=== PATIENT | male | born 1960 | race American Indian/Alaskan Native ===

== ENCOUNTER 2017-11-21 07:56 | Inpatient (IN) | payer BC ==
--- NOTE | 2017-11-21 08:22 | Emergency Department Report ---
ED Shortness of Breath HPI - General Chief Complaint: Dyspnea/Respdistress Stated Complaint: DIFFICULTY BREATHING/HYPERTENSION Time Seen by Provider: 11/21/17 08:22 Source: patient Mode of arrival: Ambulatory Limitations: No Limitations - History of Present Illness MD Complaint: shortness of breath -: Sudden Severity: moderate Pain Scale: 6 Quality: dull Consistency: constant Improves With: oxygen Worsens With: lying flat Known History Of: COPD, asthma Associated Symptoms: denies other symptoms Treatments Prior to Arrival: none - Related Data Home Oxygen Therapy: No Allergies Allergy/AdvReac Type Severity Reaction Status Date / Time No Known Allergies Allergy Unverified 11/21/17 07:58 ED Review of Systems ROS: Stated complaint: DIFFICULTY BREATHING/HYPERTENSION Other details as noted in HPI Comment: All other systems reviewed and negative Constitutional: denies: chills, fever Eyes: denies: eye pain, eye discharge ENT: denies: ear pain Respiratory: orthopnea, shortness of breath Cardiovascular: dyspnea on exertion. denies: chest pain, palpitations Endocrine: no symptoms reported Gastrointestinal: denies: abdominal pain, nausea, vomiting, diarrhea Genitourinary: denies: urgency, dysuria, frequency Musculoskeletal: denies: back pain, joint swelling Skin: denies: rash, lesions Neurological: denies: headache, weakness Psychiatric: denies: anxiety, depression Hematological/Lymphatic: denies: easy bleeding, easy bruising ED Past Medical Hx - Past Medical History Hx Hypertension: Yes Hx Asthma: Yes Hx HIV: Yes Additional medical history: Ca - Surgical History Hx Appendectomy: Yes Additional Surgical History: prostatectomy - Social History Smoking Status: Current Some Day Smoker Substance Use Type: None ED Physical Exam - General Limitations: No Limitations General appearance: alert, in distress - Head Head exam: Present: atraumatic, normocephalic, normal inspection - Eye Eye exam: Present: normal appearance, PERRL, EOMI Pupils: Present: normal accommodation - ENT ENT exam: Present: normal exam, normal orophraynx, mucous membranes moist - Neck Neck exam: Present: normal inspection, full ROM. Absent: tenderness - Respiratory Respiratory exam: Present: respiratory distress, wheezes, rhonchi - Cardiovascular Cardiovascular Exam: Present: regular rate, normal rhythm, normal heart sounds - GI/Abdominal GI/Abdominal exam: Present: soft, normal bowel sounds. Absent: distended, tenderness, guarding, rebound - Extremities Exam Extremities exam: Present: normal inspection, tenderness, normal capillary refill - Back Exam Back exam: Present: normal inspection, full ROM. Absent: tenderness - Neurological Exam Neurological exam: Present: alert, oriented X3, CN II-XII intact - Psychiatric Psychiatric exam: Present: normal affect, normal mood - Skin Skin exam: Present: warm, dry, intact, normal color ED Course Vital Signs 11/21/17 11/21/17 11/21/17 07:58 08:15 08:31 Temperature 98.8 F Pulse Rate 101 H Pulse Rate [ Posterior Bilateral Throughout] Respiratory 18 Rate Respiratory Rate [Posterior Bilateral Throughout] Blood Pressure 188/100 149/95 O2 Sat by Pulse 91 91 96 Oximetry 11/21/17 11/21/17 11/21/17 08:45 09:00 09:15 Temperature Pulse Rate Pulse Rate [ Posterior Bilateral Throughout] Respiratory Rate Respiratory Rate [Posterior Bilateral Throughout] Blood Pressure 139/91 149/95 149/95 O2 Sat by Pulse 99 99 100 Oximetry 11/21/17 11/21/17 11/21/17 09:30 09:40 09:45 Temperature Pulse Rate Pulse Rate [ 80 Posterior Bilateral Throughout] Respiratory Rate Respiratory 18 Rate [Posterior Bilateral Throughout] Blood Pressure 157/94 157/94 O2 Sat by Pulse 98 91 Oximetry 11/21/17 11/21/17 11/21/17 10:01 10:05 10:15 Temperature Pulse Rate Pulse Rate [ 82 Posterior Bilateral Throughout] Respiratory Rate Respiratory 18 Rate [Posterior Bilateral Throughout] Blood Pressure 157/94 157/94 O2 Sat by Pulse 95 93 Oximetry 11/21/17 11/21/17 10:31 10:45 Temperature Pulse Rate Pulse Rate [ Posterior Bilateral Throughout] Respiratory Rate Respiratory Rate [Posterior Bilateral Throughout] Blood Pressure 157/94 157/94 O2 Sat by Pulse 91 89 Oximetry - Reevaluation(s) Reevaluation #1: 11/21/17 11:29 This was discussed with the hospitalist on-call Dr. Oakley who will admit the patient to the hospital for further evaluation and management. ED Medical Decision Making - Lab Data Result diagrams: 11/21/17 09:05 11/21/17 09:05 - EKG Data -: EKG Interpreted by Me EKG shows normal: sinus rhythm Rate: normal (72) - EKG Data When compared to previous EKG there are: previous EKG unavailable Interpretation: normal EKG - Radiology Data Radiology results: report reviewed, image reviewed - Medical Decision Making Shortness of breath. Critical care attestation.: If time is entered above; I have spent that time in minutes in the direct care of this critically ill patient, excluding procedure time. ED Disposition Clinical Impression: Shortness of breath, Hypoxia, COPD exacerbation Disposition: OP ADMIT IP TO THIS HOSP Is pt being admited?: Yes Does the pt Need Aspirin: No Condition: Stable Instructions: Chronic Obstructive Pulmonary Disease (ED) Referrals: PRIMARY CARE, [Primary Care Provider] - 3-5 Days Time of Disposition: 11:19
[2017-11-21] MEDS ORDERED: PROVENTIL IH ONE (08:27)
[2017-11-21] MEDS ORDERED: DELTASONE PO ONE (08:27)
[2017-11-21] MEDS ORDERED: NACL 0.9% 1000 ML 1,000 ML IV ONE (08:27)
[2017-11-21] MEDS ORDERED: ATROVENT IH ONE (08:27)
--- NOTE | 2017-11-21 08:50 | XRay Report ---
FINAL REPORT EXAM: XR CHEST 1V AP HISTORY: Dyspnea TECHNIQUE: AP portable view(s) of the chest obtained. PRIORS: None. FINDINGS: No mediastinal shift. Cardiac silhouette is not enlarged. No pneumothorax, effusion, or focal pulmonary opacity identified. No acute skeletal findings. IMPRESSION: No acute pulmonary finding identified.
[2017-11-21 09:12] LABS: Basophils % (Auto) 0.6 % (0.0-1.8); Eosinophils # (Auto) 0.1 K/mm3 (0.0-0.4); Eosinophils % (Auto) 2.5 % (0.0-4.3); Hematocrit 47.5 % (35.5-45.6); Hemoglobin 16.4 gm/dl (11.8-15.2); Lymphocytes # (Auto) 0.9 K/mm3 (1.2-5.4); Mean Corpuscular HGB Conc 35 % (32-34); Mean Corpuscular Hemoglobin 31 pg (28-32); Mean Corpuscular Volume 90 fl (84-94); Monocytes # (Auto) 0.5 K/mm3 (0.0-0.8); Monocytes % (Auto) 13.8 % (0.0-7.3); Platelet Count 164 K/mm3 (140-440); Red Blood Count 5.27 M/mm3 (3.65-5.03); Red Cell Distribution Width 14.3 % (13.2-15.2)
[2017-11-21 09:24] LABS: INR 0.82 (0.87-1.13); Partial Thromboplastin Time 25.4 Sec. (24.2-36.6)
[2017-11-21 09:28] LABS: Creatine Kinase MB 3.3 ng/mL (0.0-4.0)
[2017-11-21 09:30] LABS: Alanine Aminotransferase 26 units/L (7-56); Albumin 4.6 g/dL (3.9-5); BUN/Creatinine Ratio 13; Blood Urea Nitrogen 13 mg/dL (9-20); Calcium 9.4 mg/dL (8.4-10.2); Hemolysis Index 43
--- NOTE | 2017-11-21 12:15 | History and Physical Report ---
History of Present Illness Chief complaint: Im coughing and its hard to breathe History of present illness: 57 YO Male with HTN, CaP, HIV, Asthma, Nicotine Dependence presents to ED for evaluation. Pt states that he has experienced increased productive cough, and shortness of breath over the past 3 days with worsening symptoms over the past 1 day. Pt transported to [facility] for further care and evaluation. Pt seen and evaluated in ED and found to have COPD Exacerbation, with Acute Hypoxemic Respiratory Failure. Pt denies fever, chills, CP, Palpitations, NVD, Skin rash, BRBPR, Unintentional weight loss, Night sweats, bone pain, or recent ill contacts. Past History Past Medical History: HIV/AIDS, hypertension Past Surgical History: appendectomy, Other (prostatectomy) Social history: single, smoking Family history: hypertension Medications and Allergies Allergies Allergy/AdvReac Type Severity Reaction Status Date / Time No Known Allergies Allergy Unverified 11/21/17 07:58 Home Medications Medication Instructions Recorded Confirmed Last Taken Type Efavirenz/Emtricita/Tenofo(Nf) 1 each PO DAILY 11/21/17 11/21/17 Unknown History [Atripla (Nf)] Olmesartan/Amlodipin/Hcthiazid 1 each PO DAILY 11/21/17 11/21/17 Unknown History [Tribenzor 40-5-12.5 mg Tablet] Review of Systems Constitutional: no weight loss, no weight gain, no fever, no chills Ears, nose, mouth and throat: no ear pain, no ear discharge, no tinnitis, no decreased hearing, no nose pain, no nasal congestion Cardiovascular: no chest pain, no orthopnea, no palpitations, no rapid/ irregular heart beat, no edema Respiratory: cough, cough with sputum, excessive sputum, shortness of breath, no congestion, no wheezing Gastrointestinal: no nausea, no vomiting, no diarrhea, no constipation Genitourinary Male: no hematuria, no flank pain, no discharge, no urinary frequency, no urinary hesitancy Rectal: no pain, no incontinence, no bleeding Musculoskeletal: no neck stiffness, no neck pain, no shooting arm pain, no arm numbness/tingling, no low back pain, no shooting leg pain Integumentary: no rash, no pruritis, no redness, no sores, no wounds Neurological: no head injury, no transient paralysis, no paralysis, no weakness , no parathesias, no numbness Psychiatric: no anxiety, no memory loss, no change in sleep habits, no sleep disturbances, no insomnia, no hypersomnia Endocrine: no cold intolerance, no heat intolerance, no polyphagia, no excessive thirst, no polydipsia, no polyuria, no nocturia Hematologic/Lymphatic: no easy bruising, no easy bleeding, no lymphadenopathy, no lymphedema Allergic/Immunologic: no urticaria, no allergic rhinitis, no wheezing, no persistent infections, no anaphylaxis Exam - Constitutional Vitals: Temp Pulse Resp BP Pulse Ox 98.8 F 82 18 157/94 89 11/21/17 07:58 11/21/17 10:05 11/21/17 10:05 11/21/17 10:45 11/21/17 10:45 General appearance: Present: mild distress - EENT Eyes: Present: PERRL ENT: hearing intact, clear oral mucosa - Neck Neck: Present: supple, normal ROM - Respiratory Respiratory effort: labored Respiratory: bilateral: diminished, rhonchi - Cardiovascular Heart Sounds: Present: S1 & S2. Absent: rub, click - Extremities Extremities: pulses symmetrical, No edema Peripheral Pulses: within normal limits - Abdominal General gastrointestinal: Present: soft, non-tender, non-distended, normal bowel sounds Male genitourinary: Present: normal - Integumentary Integumentary: Present: clear, warm, dry - Musculoskeletal Musculoskeletal: gait normal, strength equal bilaterally - Psychiatric Psychiatric: appropriate mood/affect, intact judgment & insight - Neurologic Neurologic: CNII-XII intact, moves all extremities Results - Labs CBC & Chem 7: 11/21/17 09:05 11/21/17 09:05 Labs: Abnormal lab results 11/21/17 11/21/17 11/21/17 Range/Units 09:05 09:05 09:05 WBC 3.9 L (4.5-11.0) K/mm3 RBC 5.27 H (3.65-5.03) M/mm3 Hgb 16.4 H (11.8-15.2) gm/dl Hct 47.5 H (35.5-45.6) % MCHC 35 H (32-34) % [place] % (Auto) 13.8 H (0.0-7.3) % Lymph # 0.9 L (1.2-5.4) K/mm3 PT 11.7 L (12.2-14.9) Sec. INR 0.82 L (0.87-1.13) POC ABG pO2 (80-105) Glucose 108 H (75-100) mg/dL Total Creatine Kinase (55-170) units/L 11/21/17 11/21/17 11/21/17 Range/Units 09:05 09:45 11:31 WBC (4.5-11.0) K/mm3 RBC (3.65-5.03) M/mm3 Hgb (11.8-15.2) gm/dl Hct (35.5-45.6) % MCHC (32-34) % [place] % (Auto) (0.0-7.3) % Lymph # (1.2-5.4) K/mm3 PT (12.2-14.9) Sec. INR (0.87-1.13) POC ABG pO2 108 H 54 L (80-105) Glucose (75-100) mg/dL Total Creatine Kinase 252 H (55-170) units/L Assessment and Plan - Patient Problems (1) Respiratory failure Current Visit: Yes Status: Acute Qualifiers: Chronicity: acute Respiratory failure complication: hypoxia Qualified Code(s): J96.01 - Acute respiratory failure with hypoxia Plan to address problem: supplemental oxygen, nebulizer therapy, CTA chest, NIPPV as clinically indicated , ABG, pulse oximetry (2) Nicotine dependence with withdrawal Current Visit: Yes Status: Acute Qualifiers: Nicotine product type: cigarettes Qualified Code(s): F17.213 - Nicotine dependence, cigarettes, with withdrawal Plan to address problem: smoking cessation counseling, supportive care. (3) HIV (human immunodeficiency virus infection) Current Visit: Yes Status: Acute Plan to address problem: continue antiretroviral therapy, outpatient ID F/U (4) COPD exacerbation Current Visit: Yes Status: Acute Plan to address problem: Supplemental oxygen, nebulizer therapy, IV antibiotic therapy, chest x ray, IV steroid therapy (5) DVT prophylaxis Current Visit: Yes Status: Acute Plan to address problem: SCD to BLE while in bed.
[2017-11-21] MEDS ORDERED: PROVENTIL IH PRN (12:17)
[2017-11-21] MEDS ORDERED: ZOFRAN IV PRN (12:17)
[2017-11-21] MEDS ORDERED: SODIUM CHLORIDE FLUSH SYRINGE 10 ML IV PRN (12:17)
[2017-11-21] MEDS ORDERED: TYLENOL PO PRN (12:17)
[2017-11-21] MEDS ORDERED: ATIVAN IV ONE (12:20)
--- NOTE | 2017-11-21 16:22 | Cat Scan Report ---
FINAL REPORT EXAM: CT ANGIO CHEST HISTORY: dypsnea COMPARISON: Chest x-ray from the same date. TECHNIQUE: Contiguous axial images were obtained. Additional sagittal and coronal reformatted images were obtained. Administration of IV contrast given per institution protocol. Images submitted for interpretation. Max intensity projection images. 100 cc Omnipaque 350. FINDINGS: Heart normal in size. Thoracic aorta is normal in caliber. No acute dissection or rupture. No pulmonary embolus. No pathologically enlarged intrathoracic or axillary lymph nodes. Mild diffuse bronchial wall thickening and dilatation concerning for bronchitis/asthma. This may be acute or chronic. Mild scarring at the lung apices. No focal consolidation or pleural effusion otherwise. Enlargement of the visualized left thyroid lobe compared to the right with mild deviation of the trachea to the right. Upper airway remains patent. There may be underlying left thyroid lobe nodule. Partial ankylosis of the thoracic spine. Visualized upper abdomen is grossly unremarkable. Small amount of fluid within the mid to distal esophagus. This is concerning for reflux. IMPRESSION: No pulmonary embolus. Thoracic aorta is normal in caliber. No acute dissection or rupture. Mild bronchial wall dilatation and bronchial wall thickening concerning for mild bronchitis/asthma. No acute infiltrates or effusions. Mild scarring at the lung apices. Enlargement of the left thyroid lobe compared to the right concerning for possible underlying thyroid nodule.
[2017-11-21] MEDS: BROVANA NEBU IH SCH (19:48)
[2017-11-21] MEDS: PULMICORT IH SCH (19:48)
[2017-11-21] MEDS: PEPCID PO SCH (22:48)
[2017-11-21] MEDS: SODIUM CHLORIDE FLUSH SYRINGE 10 ML IV SCH (22:49)
[2017-11-21 23:28] LABS: Bilirubin,Urine NEG (Negative); Blood,Urine NEG (Negative); Color,Urine Straw (Yellow); Mucus,Urine FEW /HPF; Protein,Urine <15 mg/dL mg/dL (Negative); Urobilinogen,Urine < 2.0 mg/dL (<2.0)
[2017-11-21 23:37] LABS: Amphetamine Screen,Urine PRESUMPTIVE NEGATIVE; Benzodiazepines Screen,Urine PRESUMPTIVE NEGATIVE; Cannabinoid Screen,Urine PRESUMPTIVE NEGATIVE; Cocaine Screen,Urine PRESUMPTIVE NEGATIVE; Methadone Screen,Urine PRESUMPTIVE NEGATIVE; Opiate Screen,Urine PRESUMPTIVE NEGATIVE
[2017-11-22] MEDS: PULMICORT IH SCH ×2 (07:30→20:38)
[2017-11-22] MEDS: BROVANA NEBU IH SCH ×2 (07:30→20:38)
[2017-11-22] MEDS: PEPCID PO SCH ×2 (10:19→22:06)
[2017-11-22] MEDS: ZITHROMAX 500 MG in NACL 0.9% 250ML 250 ML IV SCH (11:44)
[2017-11-22] MEDS: SODIUM CHLORIDE FLUSH SYRINGE 10 ML IV SCH ×2 (11:49→22:07)
--- NOTE | 2017-11-22 14:10 | Progress Note ---
Assessment and Plan (1) Respiratory failure Current Visit: Yes Status: Acute Qualifiers: Chronicity: acute Respiratory failure complication: hypoxia Qualified Code(s): J96.01 - Acute respiratory failure with hypoxia Plan to address problem: supplemental oxygen, nebulizer therapy, CTA chest was normal, NIPPV as clinically indicated, ABG, pulse oximetry (2) Nicotine dependence with withdrawal Current Visit: Yes Status: Acute Qualifiers: Nicotine product type: cigarettes Qualified Code(s): F17.213 - Nicotine dependence, cigarettes, with withdrawal Plan to address problem: smoking cessation counseling, supportive care. (3) HIV (human immunodeficiency virus infection) Current Visit: Yes Status: Acute Plan to address problem: continue antiretroviral therapy, outpatient ID F/U (4) COPD exacerbation Current Visit: Yes Status: Acute Plan to address problem: Supplemental oxygen, nebulizer therapy, IV antibiotic therapy, chest x ray, IV steroid therapy iv antibiotic CXR was normal (5) DVT prophylaxis Current Visit: Yes Status: Acute Plan to address problem: SCD to BLE while in bed. Subjective Date of service: 11/22/17 Principal diagnosis: acute respiratory failure, COPD exacerbation, HIV. Interval history: still having shortness of breath. Still coughing. No fever. Objective - Exam Narrative Exam: Constitutional: Well-nourished well-developed. In no distress Head: Normocephalic atraumatic Eyes: Pupils are equal round and reactive to light Nose: No enlarged turbinates, no septal deviation. Mouth: Moist mucous membranes. Neck: Supple no thyromegaly. No bruit. No JVD Heart: Regular rate and rhythm, S1-S2 abnormal. No rubs murmurs or gallop Lungs: Decreased breath sounds bilaterally no rales or rhonchi Abdomen: Soft, nontender. Bowel sound are present. Extremities: No edema no cyanosis and no clubbing. Neuro: Alert oriented Oriented x3. No focal sensory or motor deficit. Skin: No rashes no hyperemic spots Psychiatry: Euthymic. Calm. - Constitutional Vitals: Vital Signs - 12hr 11/22/17 11/22/17 11/22/17 05:58 07:29 07:30 Temperature 98.0 F Pulse Rate 83 Pulse Rate [ 84 Posterior Bilateral Throughout] Respiratory 20 Rate Respiratory 16 Rate [Posterior Bilateral Throughout] Blood Pressure 118/82 O2 Sat by Pulse 93 95 Oximetry 11/22/17 12:35 Temperature 98.5 F Pulse Rate 87 Pulse Rate [ Posterior Bilateral Throughout] Respiratory 20 Rate Respiratory Rate [Posterior Bilateral Throughout] Blood Pressure 128/81 O2 Sat by Pulse 92 Oximetry - Labs CBC & Chem 7: 11/21/17 09:05 11/21/17 09:05 Labs: Abnormal lab results 11/21/17 Range/Units 23:00 Ur Specific [place] 1.044 H (1.003-1.030)
[2017-11-22] MEDS ORDERED: AMLODIPIN PO SCH (14:15)
[2017-11-22] MEDS ORDERED: EMTRICITA PO SCH (14:15)
[2017-11-22] MEDS ORDERED: OLMESARTAN PO SCH (14:15)
[2017-11-22] MEDS ORDERED: EFAVIRENZ PO SCH (14:15)
[2017-11-22] MEDS ORDERED: TENOFO PO SCH (14:15)
[2017-11-22] MEDS ORDERED: HCTHIAZID PO SCH (14:15)
[2017-11-22] MEDS: NORVASC PO SCH (16:21)
[2017-11-22] MEDS: COZAAR PO SCH (16:21)
[2017-11-22] MEDS: HCTZ PO SCH (16:21)
[2017-11-22] MEDS: EMTRIVA PO SCH (18:49)
[2017-11-22] MEDS: SUSTIVA PO SCH (18:50)
[2017-11-22] MEDS: VIREAD PO SCH (18:52)
[2017-11-23 05:59] LABS: Basophils % (Auto) 0.4 % (0.0-1.8); Eosinophils % (Auto) 0.4 % (0.0-4.3); Hematocrit 43.9 % (35.5-45.6); Hemoglobin 14.6 gm/dl (11.8-15.2); Lymphocytes # (Auto) 1.7 K/mm3 (1.2-5.4); Lymphocytes % (Auto) 24.7 % (13.4-35.0); Mean Corpuscular HGB Conc 33 % (32-34); Mean Corpuscular Hemoglobin 30 pg (28-32); Mean Corpuscular Volume 91 fl (84-94); Monocytes # (Auto) 0.6 K/mm3 (0.0-0.8); Monocytes % (Auto) 9.1 % (0.0-7.3); Platelet Count 164 K/mm3 (140-440); Red Blood Count 4.85 M/mm3 (3.65-5.03); Red Cell Distribution Width 14.4 % (13.2-15.2)
[2017-11-23 06:38] LABS: Alanine Aminotransferase 25 units/L (7-56); Albumin 3.9 g/dL (3.9-5); BUN/Creatinine Ratio 18; Blood Urea Nitrogen 18 mg/dL (9-20); Calcium 8.9 mg/dL (8.4-10.2); Hemolysis Index 1
[2017-11-23] MEDS: PULMICORT IH SCH ×2 (09:08→20:19)
[2017-11-23] MEDS: BROVANA NEBU IH SCH ×2 (09:08→20:19)
[2017-11-23] MEDS: ZITHROMAX 500 MG in NACL 0.9% 250ML 250 ML IV SCH (11:59)
[2017-11-23] MEDS: COZAAR PO SCH (12:00)
[2017-11-23] MEDS: PEPCID PO SCH ×2 (12:00→21:46)
[2017-11-23] MEDS: HCTZ PO SCH (12:01)
[2017-11-23] MEDS: NORVASC PO SCH (12:01)
[2017-11-23] MEDS: VIREAD PO SCH (12:02)
[2017-11-23] MEDS: SUSTIVA PO SCH (12:03)
[2017-11-23] MEDS: EMTRIVA PO SCH (12:03)
--- NOTE | 2017-11-23 13:32 | Progress Note ---
Assessment and Plan - Respiratory failure continue supplemental oxygen, nebulizer therapy, CTA chest was normal, pulse oximetry - Nicotine dependence with withdrawal smoking cessation counseling, supportive care. - HIV (human immunodeficiency virus infection) Current Visit: Yes Status: Acute Plan to address problem: continue antiretroviral therapy, outpatient ID F/U - COPD exacerbation Supplemental oxygen, nebulizer therapy, IV antibiotic therapy, Wean IV steroid therapy CXR was normal - DVT prophylaxis SCD to BLE while in bed. Disposition: Pt still had decreased breath sound. May be discharged in 1-2 days Subjective Date of service: 11/23/17 Principal diagnosis: acute respiratory failure, COPD exacerbation, HIV. Interval history: Patient seen and examined. still having shortness of breath. Still coughing. No fever. Objective - Exam Narrative Exam: Constitutional: Well-nourished well-developed. In no distress Head: Normocephalic atraumatic Eyes: Pupils are equal round and reactive to light Nose: No enlarged turbinates, no septal deviation. Mouth: Moist mucous membranes. Neck: Supple no thyromegaly. No bruit. No JVD Heart: Regular rate and rhythm, S1-S2 abnormal.No rubs murmurs or gallop Lungs: Decreased breath sounds bilaterally no rales or rhonchi Abdomen: Soft, nontender. Bowel sound are present. Extremities: No edema no cyanosis and no clubbing. Neuro: Alert oriented Oriented x3. No focal sensory or motor deficit. Skin: No rashes no hyperemic spots Psychiatry: Euthymic. Calm. - Constitutional Vitals: Vital Signs - 12hr 11/23/17 11/23/17 11/23/17 05:21 09:08 09:11 Temperature 98.0 F Pulse Rate 70 Pulse Rate [ 78 Posterior Bilateral Throughout] Respiratory 20 Rate Respiratory 18 Rate [Posterior Bilateral Throughout] Blood Pressure 127/76 O2 Sat by Pulse 94 97 Oximetry 11/23/17 11/23/17 09:20 10:52 Temperature 98.4 F Pulse Rate 75 Pulse Rate [ 80 Posterior Bilateral Throughout] Respiratory 15 Rate Respiratory 18 Rate [Posterior Bilateral Throughout] Blood Pressure 136/95 O2 Sat by Pulse 96 Oximetry - Labs CBC & Chem 7: 11/23/17 05:18 11/23/17 05:18 Labs: Abnormal lab results 11/23/17 Range/Units 05:18 [place] % (Auto) 9.1 H (0.0-7.3) %
[2017-11-23] MEDS: SODIUM CHLORIDE FLUSH SYRINGE 10 ML IV SCH (21:47)
[2017-11-24 06:12] LABS: Basophils % (Auto) 0.3 % (0.0-1.8); Eosinophils % (Auto) 0.2 % (0.0-4.3); Hemoglobin 14.6 gm/dl (11.8-15.2); Lymphocytes # (Auto) 2.1 K/mm3 (1.2-5.4); Mean Corpuscular HGB Conc 34 % (32-34); Mean Corpuscular Hemoglobin 31 pg (28-32); Mean Corpuscular Volume 90 fl (84-94); Monocytes # (Auto) 0.8 K/mm3 (0.0-0.8); Monocytes % (Auto) 9.3 % (0.0-7.3); Platelet Count 165 K/mm3 (140-440); Red Blood Count 4.78 M/mm3 (3.65-5.03); Red Cell Distribution Width 13.9 % (13.2-15.2)
[2017-11-24 06:38] LABS: Alanine Aminotransferase 24 units/L (7-56); Albumin 3.9 g/dL (3.9-5); BUN/Creatinine Ratio 19; Blood Urea Nitrogen 17 mg/dL (9-20); Hemolysis Index 8
[2017-11-24] MEDS: PULMICORT IH SCH (08:06)
[2017-11-24] MEDS: BROVANA NEBU IH SCH (08:06)
[2017-11-24] MEDS ORDERED: ZITHROMAX PO SCH (10:00)
[2017-11-24] MEDS: EMTRIVA PO SCH (11:58)
[2017-11-24] MEDS: SUSTIVA PO SCH (11:58)
[2017-11-24] MEDS: PEPCID PO SCH (11:59)
[2017-11-24] MEDS: COZAAR PO SCH (12:00)
[2017-11-24] MEDS: HCTZ PO SCH (12:01)
[2017-11-24] MEDS: SODIUM CHLORIDE FLUSH SYRINGE 10 ML IV SCH ×2 (12:01→12:02)
[2017-11-24] MEDS: NORVASC PO SCH (12:01)
[2017-11-24] MEDS: VIREAD PO SCH (12:06)
[2017-11-24 12:19] VITALS: BP 126/84
--- NOTE | 2017-11-24 14:28 | Discharge Summary ---
Providers - Providers Date of Admission: 11/21/17 12:17 Date of discharge: 11/24/17 Attending physician: TRICE ALANIZ Primary care physician: MADDY ROB MD Hospitalization Condition: Stable Hospital course: Brief history: 57 YO Male with HTN, CaP, HIV, Asthma, Nicotine Dependence presents to ED for evaluation of SOB. Discharge diagnosis: - Respiratory failure continue supplemental oxygen, nebulizer therapy, CTA chest was normal, pulse oximetry - Nicotine dependence with withdrawal smoking cessation counseling, supportive care. - HIV (human immunodeficiency virus infection) Current Visit: Yes Status: Acute Plan to address problem: continue antiretroviral therapy, outpatient ID F/U - COPD exacerbation Supplemental oxygen, nebulizer therapy, IV antibiotic therapy, Wean IV steroid therapy CXR was normal - DVT prophylaxis SCD to BLE while in bed. Her Physical exam; Constitutional: Well-nourished well-developed. In no distress Head: Normocephalic atraumatic Eyes: Pupils are equal round and reactive to light Nose: No enlarged turbinates, no septal deviation. Mouth: Moist mucous membranes. Neck: Supple no thyromegaly. No bruit. No JVD Heart: Regular rate and rhythm, S1-S2 abnormal.No rubs murmurs or gallop Lungs: Decreased breath sounds bilaterally no rales or rhonchi Abdomen: Soft, nontender. Bowel sound are present. Extremities: No edema no cyanosis and no clubbing. Neuro: Alert oriented Oriented x3. No focal sensory or motor deficit. Skin: No rashes no hyperemic spots Psychiatry: Euthymic. Calm. Disposition: DC-01 TO HOME OR SELFCARE Time spent for discharge: 34 minutes Core Measure Documentation - Palliative Care Palliative Care/ Comfort Measures: Not Applicable - Core Measures Any of the following diagnoses?: none Exam - Constitutional Vitals: Temp Pulse Resp BP Pulse Ox 98.5 F 68 20 126/84 97 11/24/17 12:18 11/24/17 12:18 11/24/17 12:18 11/24/17 12:18 11/24/17 08:10 Plan Activity: advance as tolerated Weight Bearing Status: Weight Bear as Tolerated Diet: low fat, low salt Follow up with: PRIMARY CARE, [Primary Care Provider] - 3-5 Days Prescriptions: amLODIPine [Norvasc] 5 mg PO QDAY #30 tablet Azithromycin [Zithromax TAB] 500 mg PO QDAY #4 tablet Budesonide/Formoterol Fumarate [Symbicort 160-4.5 Mcg Inhaler] 10.2 gm IH BID 30 Days hfa.[email or web address].[email or web address] Hydrochlorothiazide [HCTZ] 12.5 mg PO QDAY #30 capsule Losartan [Cozaar] 50 mg PO QDAY #30 tablet
== END 2017-11-24 16:30 | disposition home or self-care (01) | DRG 189 ==
LOC: ED 07:56 → 3A 12:17
PROVIDERS: ADMIT Internal Medicine; ATTEND Internal Medicine
PROC: 4A033R1 Measurement of Arterial Saturation, Peripheral, Percutaneous Approach (ICD-10-PCS; principal; 2017-11-21)
DX: J96.01 Acute respiratory failure with hypoxia (principal); B20 Human immunodeficiency virus [HIV] disease; J44.1 Chronic obstructive pulmonary disease with (acute) exacerbation; F17.213 Nicotine dependence, cigarettes, with withdrawal; I10 Essential (primary) hypertension; Z82.49 Family history of ischemic heart disease and other diseases of the circulatory system; Z71.6 Tobacco abuse counseling; Z90.49 Acquired absence of other specified parts of digestive tract; Z90.79 Acquired absence of other genital organ(s); Z85.46 Personal history of malignant neoplasm of prostate
CPT/HCPCS: 36415; 71045; 71275; 80053; 80307; 81001; 82140; 82550; 82553; 82803; 83615; 83735; 83880; 84484; 85025; 85379; 85610; 85730; 87040; 93005; 93010; 94640; 94760; 96361; 96374; 99406; J0456; J2060; J2920; J7030; J7050; J7512; Q9967